=== PATIENT | male | born 2000 | race Caucasian/White ===

== ENCOUNTER 2020-01-13 11:37 | Emergency (ER) | payer OTHER, BC ==
[2020-01-13 11:42] VITALS: BP 123/73
--- NOTE | 2020-01-13 12:36 | EDM.PDOC ---
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 He developed itching and spasms in his upper back. He was uncomfortable. He felt better on the transport here. He denies any difficulties with things other than mild skin irritation in the upper back. He denies any respiratory GI problems. He has no new neurological symptoms. He is otherwise healthy. Poison control was contacted during transport and they had n o specific advice. - Related Data Allergies Allergy/AdvReac Type Severity Reaction Status Date / Time No Known Allergies Allergy Verified 12/31/14 22:35 Home Meds: Home Meds NK [No Known Home Meds] 12/31/14 [History] Past Medical History - Past Surgical History Other Musculoskeletal Surgeries/Procedures:: elbow dislocation Social & Family History - Tobacco Use Smoking Status *Q: Never Smoker - Caffeine Use Caffeine Use: Reports: Coffee, Energy Drinks, Soda - Recreational Drug Use Recreational Drug Use: No ED ROS GENERAL - Review of Systems Review Of Systems: See Below Constitutional: Denies: Fever, Malaise, Weakness, Fatigue HEENT: Reports: No Symptoms Respiratory: Reports: No Symptoms Cardiovascular: Reports: No Symptoms GI/Abdominal: Denies: Nausea, Vomiting Musculoskeletal: Reports: Back Pain Neurological: Denies: Dizziness, Headache, Numbness, Paresthesia Psychiatric: Reports: Anxiety ED EXAM, GENERAL - Physical Exam Exam: See Below Exam Limited By: No Limitations General Appearance: Alert, WD/WN, No Apparent Distress. No: Anxious Eye Exam: Bilateral Eye: Other (PERRLA) Nose: Normal Inspection. No: Nasal Swelling, Clear Rhinorrhea Throat/Mouth: Normal Inspection, Normal Oropharynx Head: Normocephalic Neck: Normal Inspection, Supple, Non-Tender Respiratory/Chest: No Respiratory Distress, Lungs Clear, Normal Breath Sounds Cardiovascular: Normal Peripheral Pulses GI/Abdominal: Normal Bowel Sounds, Soft, Non-Tender Back Exam: Normal Inspection, Full Range of Motion Neurological: Alert, Oriented, Normal Cognition, No Motor/Sensory Deficits Psychiatric: Normal Affect Skin Exam: Other (He has a mild sunburn on his shoulders.) Course - Vital Signs Text/Narrative:: This patient had back discomfort after he output of an old [employer] to the camp where he is staph. He feels fine now. His emergency medical exam is normal. Poison control was contacted and he had no specific advice. Bianca. He can return here as needed. He is hemodynamically stable. Last Recorded V/S: Last Vital Signs Temp 36 C L 01/13/20 11:40 Pulse Resp 18 01/13/20 11:40 BP 123/73 01/13/20 11:40 Pulse Ox 99 01/13/20 11:40 Departure - Departure Time of Disposition: 12:31 Disposition: Home, Self-Care 01 Condition: Good Clinical Impression: Back pain - Discharge Information *PRESCRIPTION DRUG MONITORING PROGRAM REVIEWED*: No *COPY OF PRESCRIPTION DRUG MONITORING REPORT IN PATIENT YARA: No Referrals: PCP,None [Primary Care Provider] - Additional Instructions: Avoid contact with the old [employer] tent. Follow-up with your doctor as needed. Return to the ER as needed. Sepsis Event Note (ED) - Evaluation Sepsis Screening Result: No Definite Risk - Focused Exam Vital Signs: Vital Signs Temp Resp BP Pulse Ox 01/13/20 11:40 36 C L 18 123/73 99
== END 2020-01-13 12:42 | disposition home or self-care (01) ==
LOC: JP.ED 11:37
DX: M54.6 Pain in thoracic spine (principal); L55.9 Sunburn, unspecified
CPT/HCPCS: 99284